=== PATIENT | male | born 1960 | race Caucasian/White ===

== ENCOUNTER → 2017-02-28 | Outpatient (CLI) | payer BC | LOC: FIMAGING 15:04 | PROVIDERS: ATTEND Family Medicine Sports Medicine | DX: S83.242A Other tear of medial meniscus, current injury, left knee, initial encounter (principal); M22.42 Chondromalacia patellae, left knee; M76.52 Patellar tendinitis, left knee ==

== ENCOUNTER 2017-05-31 18:52 | Outpatient (CLI) | payer BC | END 2017-06-01 01:15 | disposition home or self-care (01) | LOC: FOBOP 18:52 | PROVIDERS: ATTEND Internal Medicine Hematology & Oncology | PROC: 30233N1 Transfusion of Nonautologous Red Blood Cells into Peripheral Vein, Percutaneous Approach (ICD-10-PCS; principal; 2017-05-31) | DX: D46.9 Myelodysplastic syndrome, unspecified (principal); C81.90 Hodgkin lymphoma, unspecified, unspecified site; D70.2 Other drug-induced agranulocytosis; L71.9 Rosacea, unspecified; J38.2 Nodules of vocal cords; R22.1 Localized swelling, mass and lump, neck | CPT/HCPCS: 36430; P9016; P9040 ==

== ENCOUNTER → 2017-09-06 | Outpatient (CLI) | payer OTHER | LOC: FIMAGING 12:00 | PROVIDERS: ATTEND Internal Medicine Hematology & Oncology | DX: J40 Bronchitis, not specified as acute or chronic (principal) ==

== ENCOUNTER 2018-01-04 14:35 | Outpatient (CLI) | payer BC ==
[2018-01-04] MEDS ORDERED: ACETAMINOPHEN 325 MG TAB PO ONE (15:00)
[2018-01-04] MEDS ORDERED: diphenhydrAMINE 25 MG CAP PO ONE (15:00)
== END 2018-01-04 21:30 | disposition home or self-care (01) ==
LOC: FOBOP 14:35
PROVIDERS: ATTEND Internal Medicine Hematology & Oncology
PROC: 30233N1 Transfusion of Nonautologous Red Blood Cells into Peripheral Vein, Percutaneous Approach (ICD-10-PCS; principal; 2018-01-04)
DX: D46.9 Myelodysplastic syndrome, unspecified (principal); C81.90 Hodgkin lymphoma, unspecified, unspecified site
CPT/HCPCS: 36430; P9016; P9040

== ENCOUNTER 2018-03-13 08:13 | Observation (INO) | payer OTHER ==
[2018-03-13] MEDS: DEXAMETHASONE 0.1% 5 ML OPHT.BTL OP SCH ×4 (08:46→20:54)
[2018-03-13] MEDS ORDERED: ONDANSETRON HCL PF 8 MG, DEXAMETHASONE 10 MG in NS 50 ML IV SCH (09:00)
[2018-03-13] MEDS: CYTARABINE IV SCH ×2 (09:46→20:54)
[2018-03-13] MEDS: NS IV SCH ×2 (09:46→20:54)
[2018-03-13] MEDS ORDERED: ACETAMINOPHEN 325 MG TAB PO PRN (12:25)
[2018-03-13] MEDS ORDERED: ONDANSETRON DISINTEGRATING 4 MG TAB PO PRN (12:25)
[2018-03-13] MEDS ORDERED: HYDROCODONE/APAP 5/325 TAB PO PRN (12:25)
[2018-03-13] MEDS ORDERED: ONDANSETRON 4 MG/2 ML VIAL IVP PRN (12:25)
--- NOTE | 2018-03-13 12:32 | PDGENHP ---
History and Physical - Chief Complaint chemotherapy - History of Present Illness This is a 57 yo male who is here for induction therapy. 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 He has known anemia and has been tolerating very low Hgb levels. He denies cp or sob. No n/v. Overall feels well. Plan is for him to discharge today after chemotherapy and return in 2 days for another round. Labs from 03/12 were reviewed and show a Hgb of 6.4. PMHx: Hodgkin's Lymphoma AML HTN Anemia Bleomycin induced interstitial lung disease Soc Hx: non smoker, social ETOH FmHx:non contributory History Information - Allergies/Home Medication List Allergies/Adverse Reactions: crab Allergy (Verified 01/27/18 09:27) No Known Drug Allergies Allergy (Verified 03/13/18 09:12) Home Medications: Cyanocobalamin/Folic AC/Vit B6 [FOLIC ACID-VIT B6-VIT B12 TAB] 1 each PO DAILY 03/13/18 [Last Taken Unknown] I have personally reviewed and updated: medical history, social history - Social History Smoking Status: Never smoked Review of Systems Review of Systems: ROS: 10pt was reviewed & negative except for what was stated in HPI & below Physical Exam Physical Exam: Temp Pulse Resp BP Pulse Ox 37.1 C 81 16 107/67 99 03/13/18 09:01 03/13/18 09:01 03/13/18 09:01 03/13/18 09:01 03/13/18 09:01 Constitutional: no apparent distress Eyes: PERRL, EOMI Ears, Nose, Mouth, Throat: moist mucous membranes, hearing normal Cardiovascular: regular rate and rhythym, No edema Respiratory: no respiratory distress, no rales or rhonchi, clear to auscultation Gastrointestinal: normoactive bowel sounds, soft, non-tender abdomen Skin: warm Musculoskeletal: full muscle strength Neurologic: AAOx3 Psychiatric: interacting appropriately, not anxious, not encephalopathic Assessment & Plan Assessment: #AML -induction therapy per Onc #Anemia -Hold off on transfusion currently #Hx of HTN Plan: -chemo per Onc -Ok to discharge after course completed today
--- NOTE | 2018-03-13 13:33 | GCON ---
[f rep st] CONSULTATION DATE OF CONSULTATION: 03/13/2018 REFERRING PHYSICIAN: Dr. Urena REASON FOR CONSULTATION: Patient well known to [facility] with treatment-related MDS/AML, admitted for hig h-dose christianne-C chemotherapy. The patient is a very pleasant 57-year-old gentleman with a history of nodular sclerosing Hodgkin dis ease. More recently, he developed treatment-related myelodysplastic syndrome/AML with circulating pe ripheral blood blasts. He was induced with 7 + 3, and is being evaluated for allotransplant at [facility]. His most recent bone marrow biopsy done on 03/04, shows reduction in blasts, 6% to 7%, with myelody splastic changes present. Due to timing of donor and worry that a delay will result in increased amount of blasts, decision was made to treat him this week with high-dose christianne-C 1.5 g/sq m every other day x3 doses, the first of w hich will be given today. Patient was most recently seen at [facility]. White blood cell count 6.1, hemoglobin 6.4, hematocrit 19.8, platelet count 124,000. Notably, he has significant nosebleeds with platelet count below 20,000, an d the decision has been made to keep his platelets close to 40,000. He was also noted to have some retinal hemorrhages and then seen by Ophthalmology; and, for this reas on, we are trying to keep his platelets at this 40,000 elissa. He denies any worsening in his vision a nd will be placed on steroid eye drops this admission. REVIEW OF SYSTEMS: Patient denies fevers, cough, shortness of breath, or abdominal pain. He denies any change in urination or bowel movements. Denies any bleeding. PAST MEDICAL HISTORY: 1. Nodular sclerosing Hodgkin lymphoma diagnosed in 2009, with a left neck mass, CD30 positive, CD15 positive with a gastrohepatic node, giving him stage IIIA disease. 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 He had a rapid recurrence in same year in the left neck. He had salvage therapy with ICE chemother apy x2. 2. He did high-dose beam chemotherapy with autologous stem cell rescue in October 2010. 3. Enrollment on [facility] 33 study with brentuximab and received 16 doses of this as adjuvant therapy. 4. Progressive cytopenias from 2015 to 2017, with platelets down to 90,000. 5. Bone marrow biopsy April 2017, which showed normal cellular marrow with evidence of dysplasia , dyspoiesis, and red blood cell precursors, and megakaryocytes. 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 6. Darbepoetin for anemia without response and then required multiple blood transfusions in May. 7. Initiation of Vidaza for treatment related myelodysplastic syndrome, 05/2017, became transfusion dependent. In January 2018, relapsed disease with marrow 70% to 75% cellularity, 19% blasts, moderate t o focal fibrosis, grade 2-3. 8. Received induction chemotherapy with 7 and 3, 01/27/2018, #15, 03/03/2018, recovery of marrow. 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 PAST SURGICAL HISTORY: 1. Right AC joint repair, 1982. 2. Inguinal hernia repair, 1966 and 2016. 3. Broken foot repair, 2013. FAMILY HISTORY: Noncontributory. SOCIAL HISTORY: Never smoker. Very active. 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 Occasionally drinks alcohol. 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 ALLERGIES: Iodine. PHYSICAL EXAM: VITAL SIGNS: Today blood pressure 107/67. Pulse 81. Respiration rate 16. O2 satura tion 99% on room air. Temp 37.1. GENERAL: 57-year-old gentleman looks in pretty good health not in acute distress. Alert and oriented. HEENT: Anicteric sclerae. Oropharynx is clear. HEART: Regul ar rate and rhythm. LUNGS: Clear bilaterally. ABDOMEN: Soft, nontender. Bowel sounds positive. LOWER EXTREMITIES: No edema. SKIN: No rash. NEUROLOGIC: Nonfocal. LABS: Per [facility] labs as described above. He will have labs at [facility] tomorrow. ASSESSMENT AND PLAN: 57-year-old gentleman with treatment related MDS AML who is pending allogeneic stem cell transplant at the beginning of April. He is admitted today for elective chemotherapy. 1. Patient will receive high-dose christianne-C q.12 hours every other day x3 doses for a total of 6 doses. Orders were reviewed today. Labs have been appropriate. This is a little bit unconventional as he will be admitted the days of his chemotherapy and discharged due to the length of stay he has previou sly had in the hospital and his treating physicians concern for infections or other. 2. Most recent bone marrow 03/04/2018, shows response. Still has evidence of 6% to 7% blasts, but m uch improvement from previous with some myelodysplastic changes. Dr. Erazo wants to continue chemo therapy before transplant as a means to avoid peripheral blood circulating blasts. 3. For retinal hemorrhage, we will continue to monitor. He has been seen by Ophthalmology. Dr. Marc tobias and Dr. Dawna Erazo are aware. Will keep platelets greater than 40,000, and continue dexametha sone eye drops. 4. On the days he is not admitted to the hospital he will be getting labs at [facility] and will continue to monitor him symptomatically. He tolerates a very low hemoglobin and been transfusing only if he i s less than 6. More than 25 minutes was spent with patient, more than 50% of the time counseling and coordinating ca re. /[id number]/MODL
[2018-03-13 20:56] VITALS: BP 134/83
== END 2018-03-13 23:49 | disposition home or self-care (01) ==
LOC: F1N 08:13
PROVIDERS: ADMIT Internal Medicine Hematology & Oncology; ATTEND Internal Medicine Hematology & Oncology
DX: D46.9 Myelodysplastic syndrome, unspecified (principal); C92.90 Myeloid leukemia, unspecified, not having achieved remission; D64.9 Anemia, unspecified; Z85.71 Personal history of Hodgkin lymphoma; I10 Essential (primary) hypertension
CPT/HCPCS: J1100; J2405; J9100

== ENCOUNTER 2018-03-23 | Outpatient (CLI) | payer OTHER | END 2018-03-23 16:20 | disposition home or self-care (01) | PROC: 30243N1 Transfusion of Nonautologous Red Blood Cells into Central Vein, Percutaneous Approach (ICD-10-PCS; principal; 2018-03-23) | DX: C92.00 Acute myeloblastic leukemia, not having achieved remission (principal); Z67.40 Type O blood, Rh positive | CPT/HCPCS: 36430; P9016; P9040; J1940 ==

== ENCOUNTER → 2018-03-25 | Outpatient (CLI) | payer OTHER ==
[2018-03-25] MEDS: ACETAMINOPHEN 325 MG TAB PO ONE (14:20)
[2018-03-25] MEDS: diphenhydrAMINE 25 MG CAP PO ONE (14:20)
== END ==
LOC: FOBOP 14:05
PROVIDERS: ATTEND Internal Medicine Hematology & Oncology
PROC: 30233R1 Transfusion of Nonautologous Platelets into Peripheral Vein, Percutaneous Approach (ICD-10-PCS; principal; 2018-03-25)
DX: C92.00 Acute myeloblastic leukemia, not having achieved remission (principal)
CPT/HCPCS: 36430; P9073

== ENCOUNTER → 2018-03-28 | Outpatient (CLI) | payer OTHER ==
[~2018-03-28] MED LIST: ACETAMINOPHEN 325 MG TAB PO ONE; diphenhydrAMINE 25 MG CAP PO ONE
== END ==
LOC: FOBOP 17:41
PROVIDERS: ATTEND Internal Medicine Hematology & Oncology
PROC: 30233R1 Transfusion of Nonautologous Platelets into Peripheral Vein, Percutaneous Approach (ICD-10-PCS; principal; 2018-03-28)
PROC: 30233P1 Transfusion of Nonautologous Frozen Red Cells into Peripheral Vein, Percutaneous Approach (ICD-10-PCS; principal; 2018-03-28)
DX: C92.00 Acute myeloblastic leukemia, not having achieved remission (principal)
CPT/HCPCS: 36430; P9016; P9040; P9073

== ENCOUNTER → 2018-03-31 | Outpatient (CLI) | payer OTHER | LOC: FIMAGING 10:48 | PROVIDERS: ATTEND Nurse Practitioner | DX: R05 Cough (principal); R50.9 Fever, unspecified; Z85.6 Personal history of leukemia ==